=== PATIENT | male | born 1980 ===

== ENCOUNTER 2018-01-22 09:03 | Inpatient (IN) | payer OTHER ==
--- NOTE | 2018-01-22 13:59 | CPEKG ---
Heart Rate: 53 RR Interval: 1132 P-R Interval: 132 QRSD Interval: 98 QT Interval: 480 QTC Interval: 451 P Wilbur: 40 QRS Wilbur: 23 T Wave Wilbur: -25 EKG Severity - ABNORMAL ECG - EKG Impression: SINUS RHYTHM EKG Impression: T inversion in inferior and anterior leads c.w. ischemia Electronically Signed By: Kaveh Escobedo 22-Jan-2018 15:22:08
[2018-01-22] MEDS ORDERED: HEPARIN 10,000 UNIT/10 ML MDV (1,000 UNIT/ML) IVP ONE (14:23)
[2018-01-22] MEDS ORDERED: HEPARIN 10,000 UNIT/10 ML MDV (1,000 UNIT/ML) IVP PRN (14:23)
[2018-01-22] MEDS ORDERED: HEPARIN/DEXTROSE 500 ML IV SCH (14:30)
--- NOTE | 2018-01-22 15:06 | PDGENHP ---
History and Physical - Chief Complaint Chest pain - History of Present Illness 37-year-old male, no significant past medical history. Recently had left knee surgery in [place] on . He was staying at a friend's house. [place] very restless on Wednesday and developed chest discomfort which is described as sharp pleuritic chest pain. He took his pulse and noted that his heart rate was between 100-110 beats per minute. Went to the [facility]. Chest pain was rated as a 6 on a scale of 1-10. Reported ongoing chest pain until this morning. At this time chest pain has subsided. However when he takes a deep breath he notices the discomfort which is rated of 1 on a scale of 1-10. History Information - Allergies/Home Medication List Allergies/Adverse Reactions: No Known Allergies Allergy (Unverified 01/22/18 14:02) Home Medications: Aspirin [Aspirin 325 mg (*)] 325 mg PO DAILY 01/22/18 [Last Taken 01/21/18] Docusate Sodium [Colace 100 MG (*)] 100 mg PO BID 01/22/18 [Last Taken 01/22/18 09:00] oxyCODONE HCL/ACETAMINOPHEN [Percocet 5-325 mg Tablet] 2 each PO Q4HRS PRN 01/22 [Last Taken 01/21/18 11:00 2 TABS] I have personally reviewed and updated: family history, social history - Past Medical History no pertinent PMH (His) - Surgical History Additional surgical history: Recent left knee surgery at [facility] - Family History Positive for: CAD - Social History Smoking Status: Never smoked Alcohol Use: Occasionally Drug Use: None Review of Systems Review of Systems: ROS: 10pt was reviewed & negative except for what was stated in HPI & below Physical Exam Physical Exam: Temp Pulse Resp BP Pulse Ox 36.8 C 72 16 137/79 H 100 01/22/18 13:15 01/22/18 13:15 01/22/18 13:15 01/22/18 13:15 01/22/18 13:15 O2 (L/minute) 2 Constitutional: no apparent distress, appears nourished, not in pain Eyes: PERRL, EOMI Ears, Nose, Mouth, Throat: moist mucous membranes, hearing normal Cardiovascular: regular rate and rhythym, no murmur, rub, or gallop Respiratory: no respiratory distress, no rales or rhonchi Lab Data & Imaging Review EKG Interpretation: Positive for: other (Sinus rhythm, anterior T-wave inversions) Assessment & Plan Assessment: Chest pain (Acute) Plan: 37-year-old male presented 18 hours after knee surgery with parasternal chest pain which is pleuritic in nature. CT angiogram done at [facility] ruled out pulmonary embolism and aortic dissection. Troponin levels were in the 1.0 range. ECG this morning at outside institution showed T inversion in inferior leads and T-wave flattening in anterior leads. Current ECG shows dynamic EKG changes with deep T-wave inversions in lead V1 to V4. We discussed medical therapy versus invasive approach. Given EKG changes and positive troponin I am recommending coronary angiography. Risks of the procedure including , mi, stroke, vascular access complications, DVT, pulmonary embolism, renal failure, anaphylaxis etc were discussed with the patient. Potential outcomes of the procedure including percutaneous intervention, no treatment or CABG were also discussed with him. My partner Dr. Hiro Martinez will be performing coronary angiography and percutaneous intervention if necessary. Patient's RN was present in the room at the time of this discussion.
[2018-01-22] MEDS ORDERED: LIDOCAINE 1% 300 MG/30 ML SDV ONE (15:15)
--- NOTE | 2018-01-22 15:21 | PDPROPOC ---
Sedation Plan of Care Sedation Plan of Care: mental status noted, patient educated of risks, benefits , alternatives, patient can tolerate sedation ASA Classification: ASA 2 Planned drugs: fentanyl, midazolam Mallampati Score: Class 2 Mallampati Reference Image: Patient passed 3-3-2 rule?: Yes
--- NOTE | 2018-01-22 15:21 | PDHPUP ---
History & Physical Update H&P update statement: This history and physical update is based on an assessment of the patient which was completed after admission or registration (within 24 hours), but prior to the surgery/procedure. H&P update: H&P reviewed & patient examined, no change in patient's condition since H&P completed
[2018-01-22] MEDS ORDERED: fentaNYL 100 MCG/2 ML INJ ONE (15:24)
[2018-01-22] MEDS ORDERED: IOPAMIDOL (ISOVUE-370) 150 ML BTL IV ONE (15:24)
[2018-01-22] MEDS ORDERED: MIDAZOLAM 2 MG/2 ML VIAL ONE (15:24)
[2018-01-22 15:36] LABS: PLATELET COUNT 156 10^3/uL (150-400)
[2018-01-22] MEDS ORDERED: CLOPIDOGREL BISULFATE 75 MG TAB ONE (15:44)
[2018-01-22 15:48] LABS: INR 0.96 (0.83-1.16)
[2018-01-22] MEDS ORDERED: ATROPINE SULFATE 1 MG/10 ML SYR IVP PRN (16:35)
[2018-01-22] MEDS ORDERED: HYDROCODONE/APAP 5/325 TAB PO PRN (16:35)
[2018-01-22] MEDS ORDERED: ONDANSETRON 4 MG/2 ML VIAL IVP PRN (16:35)
[2018-01-22] MEDS ORDERED: NITROGLYCERIN 0.4 MG BTL SL PRN (16:35)
--- NOTE | 2018-01-22 17:02 | CPIP ---
[f rep st] INVASIVE CARDIAC PROCEDURE DATE OF PROCEDURE: 01/22/2018 INDICATIONS FOR PROCEDURE: Xbi-TX-nmhsnsh elevation myocardial infarction. PROCEDURE: 1. Nonselective right groin Sheathogram. 2. Bilateral selective coronary angiography and left heart catheterization. 3. Left ventriculogram. HISTORY: Briefly, this is a 37-year-old male who has recent history of chest pain after post orthope dic surgery. The patient was found to have elevated troponins as well as T-wave inversions anteriorl y. The patient was consented for left heart catheterization. DESCRIPTION OF PROCEDURE: After informed consent, the patient was brought to [facility] where the right kashmir in was prepped and draped in sterile fashion. Using lidocaine, a short 6-Hebrew sheath was introduce d into the right femoral artery. Verified angiographically. A 6-Hebrew sheath, a JL4 catheter was a dvanced to the left coronary artery. Images of the left coronary artery revealed normal left main, n ormal left circumflex artery giving off normal marginal branches. There was a large diagonal artery coming off proximally, which was healthy and free of disease. The LAD wrapped around the apex, which was healthy and free of disease. After the images were obtained, the JL4 catheter was removed over the 0.035 wire. JR4 catheter was advanced to the right coronary artery. Images of the right coronar y artery revealed normal os proximal mid distal RCA. The RPD and R+ appeared widely healthy and free of disease. After these were obtained, the JR4 catheter was removed. The pigtail catheter was guid ed into the left ventricle. EDP is 25 mmHg. Left ventriculogram in the DUMONT projection showed EF of 6 5% with no wall motion abnormalities. I would estimate EF of 60% with no wall motion abnormalities. There was no pull-back into the LV or the aorta. The pigtail catheter was removed over an 0.035 wir e. Right groin was closed 6-Hebrew Angio-Seal. The patient tolerated the procedure well without com plications. IMPRESSION: 1. Normal coronary arteries. 2. Normal ejection fraction. PLAN: The patient's underlying chest pain/non STEMI was most likely coming from a noncoronary etiolo gy. We will obtain a lower extremity bilateral venous ultrasound, given the patient's recent orthope dic surgery to rule out DVT. He did have a recent CTA of the chest which ruled out dissection and pu lmonary embolism. Further orders following clinical course. /[id number]/MODL
[2018-01-22] MEDS ORDERED: IBUPROFEN 200 MG TAB PO PRN (19:01)
--- NOTE | 2018-01-22 19:10 | ECHO ---
[email or web address] [address] [address] Main: [phone] Fax: Transthoracic Echocardiogram Name: RAISA SHI MR#: [id number] Study Date: 01/22/2018 Study Time: 03:05 PM Date of : 1980 Age: 37 year(s) Height: 180.3 cm (71 in.) Weight: 146.51 kg (323 lb.) BSA: 2.59 m2 Gender: Male Examination: Echo Indication: Post Knee surgery, Chest Pain, Pre Cath Image Quality: Contrast: Requested by: Kaveh Escobedo BP: 132 mmHg/90 mmHg Heart Rate: Rhythm: Normal sinus rhythm Indication: Post Knee surgery, Chest Pain, Pre Cath 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 Normal global systolic LV function. Mildly dilated right ventricle. Measurements: Chambers Valvular Assessment AV/MV Valvular Assessment TV/PV Normal Normal Normal Name Value Range Name Value Range Name Value Range Ao Fiorella (MM): 3.4 cm (2.2 cm-3.7 AV Vmax: 1.17 m/s (1 m/s-1.7 PV Vmax: 1.05 m/s (0.6 m/s-0.9 cm) m/s) m/s) IVSd (2D): 0.9 cm (0.6 cm-1.1 AV maxP mmHg ( - ) PV PGmax: 4 mmHg ( - ) cm) LVOT Vmax: 1.08 m/s (0.7 m/s-1.1 LVDd (2D): 5.1 cm (4.2 cm-5.9 m/s) cm) MV E Vmax: 0.78 m/s ( - ) LVDs (2D): 3.4 cm (2.1 cm-4 MV A Vmax: 0.64 m/s ( - ) cm) MV E/A: 1.22 ( - ) LVPWd (2D): 1.3 cm (0.6 cm-1 cm) LVEF (2D): 63 (>=54 %) RVDd(2D): 4.2 cm (1.9 cm-3.8 cmmm) Continued Measurements: Chambers Valvular Assessment AV/MV Name Value Name Value LADs Lon.1 cm MV E/E' Septal: 9.10 LA Area: 23.1 cm2 MV E/E' Lateral: 9.20 Patient: RAISA SHI Study Date: 01/22/2018 Page 1 of 2 03:05 PM Findings: Left Ventricle: Normal size left ventricle. No LV hypertrophy. Normal global systolic LV function. EF is 63 %. Right Ventricle: Mildly dilated right ventricle. Left Atrium: The left atrium is normal in size. Right Atrium: The right atrium is normal in size. Mitral Valve: The mitral valve is normal in appearance and function. There is no mitral valve regurgitation. Aortic Valve: The aortic valve is tri-leaflet and functions normally. Tricuspid Valve: The tricuspid valve is normal in appearance and function. Pulmonic Valve: The pulmonic valve is normal in appearance and function. Aorta: The aorta is normal. Pericardium: No pericardial effusion. No echocardiographic evidence of hemodynamic compromise. Exam Comments: (No Signature Object) Patient: RAISA SHI Study Date: 01/22/2018 Page 2 of 2 03:05 PM [id number]
[2018-01-22] MEDS: DOCUSATE SODIUM 100 MG CAP PO SCH (20:21)
[2018-01-22] MEDS: OXYCODONE/APAP 5/325 TAB PO PRN (21:49)
[2018-01-23 04:02] LABS: PLATELET COUNT 161 10^3/uL (150-400)
[2018-01-23] MEDS: OXYCODONE/APAP 5/325 TAB PO PRN ×3 (08:02→16:58)
[2018-01-23] MEDS: DOCUSATE SODIUM 100 MG CAP PO SCH (08:03)
[2018-01-23] MEDS ORDERED: ASPIRIN 325 MG TAB PO SCH (09:00)
[2018-01-23 09:05] VITALS: RESP 12
[2018-01-23] MEDS ORDERED: IOPAMIDOL (ISOVUE-300) 100 ML BTL ONE (09:54)
--- NOTE | 2018-01-23 09:55 | PDCARPN ---
Cardiology Progress Note Chief Complaint: No chest pains or pressure this morning, but while on the toilet, a "pop" was noted with acute right groin pains. Assessment/Plan: Assessment: Patient is a 37 y/o male with unremarkable past cardiovascular history with complaints of "chest pains" voiced while in [place] on (three days prior) . Some of the pains were noted with respiration (inhalation in particular). Patient was taken to the cardiac laborer road yesterday with normal LVEF and normal coronary arteries noted. This morning, while in the bathroom to have a BM (but not started), a "pop" was noted with acute right groin pains. Nursing staff got the patient back to bed, and started direct compression of the region immediately. I assessed the groin after 5-10 minutes of pressure. No clear haematoma was palpated. Distal pulses were normal. Fem stop was placed after 10-15 minutes of direct, manual pressure, and pressures were started at 150 mm Hg, and ultimately backed down to 75 mm Hg with about one hour of fem stop pressures being maintained at this point in time. H/H were drawn (no drop noted ), and CT scan (with and without contrast) to the abdomen and pelvis is pending. Pain to the groin is minimal at present. No complaints of back pains. Plan: (1) Monitor H/H in one hour (2) CT scan of abdomen and pelvis is pending (3) Treatment for possible pericarditis is ongoing with Ibuprofen 400 mg Q6 hours (but is is written as PRN, rather than scheduled) (4) Likely monitor of patient again through the day with the patient's event over 12 hours from the procedure. Would like to ensure that this is more than healed prior to going home Subjective: No cardiovascular complaints, but as stated above, right groin pains up to 9/10 were noted after "pop" appreciated while in bathroom this morning. Objective: Vital Signs (8 Hrs) Temp Pulse Resp BP Pulse Ox 01/23/18 08:45 37.1 C 65 12 136/86 H 01/23/18 03:45 36.6 C 49 L 16 131/70 H 97 Intake/Output (24 Hrs) 01/22/18 01/23/18 01/24/18 04:59 05:59 05:59 Intake Total Balance Intake: Oral (ml) IV Intake (ml) Other: Weight Number of Voids Toilet Result Diagrams: 01/23/18 08:15 01/23/18 03:08 Telemetry: Normal sinus rhythm - Physical Exam Constitutional: WDWN, healthy appearing, obese, apparent distress (secondary to the pain in right groin) Eyes: PERRL, EOMI Ears, Nose, Mouth, Throat: moist mucous membranes Cardiovascular: regular rate and rhythm, no murmurs, no rubs, no gallops, pulses symmetric bilat, No jugular vein distention Peripheral Pulses: 2+: dorsalis-pedis (R), dorsalis-pedis (L) Respiratory: clear to auscultate bilat, no crackles, no wheezes Gastrointestinal: normoactive bowel sounds Genitourinary: no suprapubic tenderness, No flank pain Skin: no rashes, no edema Musculoskeletal: no muscular tenderness Neurologic: AAOx3, CN II-XII grossly intact Psychiatric: cooperative, interactive, following commands ICD10 Worksheet Patient Problems: Problems Problem Status Onset Chest pain Acute
--- NOTE | 2018-01-23 10:50 | PDMN ---
Medical Necessity Medical necessity: C/M review: Patient meets INPT crtieria under MCG M-89 Chest pain: Acute chest pain, troponin levels in 1.0 range requiring emergent cardiac catheterization- [facility] with right groin access site which showed normal coronaries, normal ejection fraction, 01/23/2018 AM patient felt a "pop" with acute severe right groin pains while sitting on the toilet requiring immediate direct compression of the region for 5-10 min. of pressure, Femstop was placed after 10-15 min. of direct manual pressure, pressures were started at 150 mm Hg , and backed down to 75 mm Hg with approximately 1 hr. of fem stop pressures being maintained at this point in time, possible pericarditis, requiring IV Morphine, planned 01/23/2018 CT abdomen / pelvis, Hgb / Hct in 1 hr. ongoing close monitoring of right groin site, cardiac monitoring, oral ibuprofen as needed, comorbid left knee surgery 01/20/2018. MD anticipates > 2 MN LOS for ongoing med nec for eval and TX of above.
[2018-01-23 11:08] VITALS: BP 127/75; PULSE 63; TEMP 98.6; O2SAT 94
--- NOTE | 2018-01-23 16:20 | PDDCSUM ---
Discharge Summary Discharge Summary: Patient is a 37 y/o male with recent left meniscus surgery and complaints of chest pains. Given the symptoms noted, the patient was taken to the cardiac mill laborer yesterday, where upon no cardiac pathology was appreciated. The patient was monitored overnight on PCU floor without events. This morning, just prior to my arrival, the patient sat down on the toilet, and noted a "pop" , followed by severe, acute pain and fullness to the groin. Nursing applied pressure within a few minutes, and called cardiology. I, myself, held pressure for another 5-10 minutes, then placement of a fem-stop was undertaken, at the same time that CT scan of abdomen and pelvis was arranged. After one and a half hours with pressure (75 mm Hg) after initial rapid titration down, the patient had CT, which revealed a small retroperitoneal haematoma (3.5 cm X 2.5 cm). Patient spend the day in bed, but ambulated this evening without issues. Mild point tenderness continues to be noted, but his likely falls within the normal finding post angiography. Admission date: 01-22-18 Discharge date: 01-23-18 Procedures performed: (1) Left heart catheterization (2) CT of abdomen and pelvis (3) echocardiogram No new medications were added from a CV perspective Would have patient follow up with cardiology in three days or less.
--- NOTE | 2018-01-23 18:01 | ASMTLACE ---
LACE Acuity / Level of Answers: Yes Care: Did the patient have an inpatient admission? Comorbidities - select Answers: Other Notes: CP all that apply Score: 4 Date Signed: 01/23/2018 02:08 PM Electronically Signed By:Tia Malcolm LCSW
--- NOTE | 2018-01-23 18:01 | ASMTCMCOM ---
CM Note CM Note Notes: 37yr old male admitted for CP. Had surgery on his L knee in [place] on . Went to the cath lab tech for angio-vessels normal. [place] a "pop" in his groin today-taking precautions before he is discharged. No discharge needs anticipated. Date Signed: 01/23/2018 02:11 PM Electronically Signed By:Tia Malcolm LCSW
== END 2018-01-23 17:28 | disposition home or self-care (01) | DRG 286 ==
LOC: F2W 13:00 → OBSVTOIN 01-23 10:28
PROVIDERS: ADMIT Internal Medicine Cardiovascular Disease; ATTEND Internal Medicine Cardiovascular Disease
DX: R07.89 Other chest pain (principal); K66.1 Hemoperitoneum; I31.9 Disease of pericardium, unspecified; Z98.890 Other specified postprocedural states; M54.5 Low back pain; J45.909 Unspecified asthma, uncomplicated
CPT/HCPCS: C1760; G0378; J1644; J2250; J2270; J3010; Q9967